=== PATIENT | female | born 1975 | race Caucasian/White ===

== ENCOUNTER → 2016-05-02 | Outpatient (CLI) | payer OTHER ==
[2015-12-18 01:07] VITALS: BP 97/54
[~2016-05-02] MED LIST: AMLO10TA2 PO; CLON0.1T12 PO; CONTRAST GIVEN MC PRN; DEXL60CA PO; DIVA500T2 PO; DIVA500T4 PO; IOHEXOL 240 MG/ML 50ML VIAL. IV ONE; IOHEXOL 300 MG/ML 75 ML VIAL IV ONE; LISI-338 PO; LORA0.5T PO; LOVA10TA PO; MECL12.52 PO; PANT20TA2 PO; PROAIR HFA8.5 GM IH; PROP80CA3 PO; ROPI0.5T PO; SERT50TA PO; TIZA4TAB PO; ZOLM5TAB PO
--- NOTE | 2016-05-02 13:04 | RAD ---
Indication: Abdominal pain. Technique: Axial images and coronal and sagittal reformatted images are provided. Patient received oral contrast and 75 mL of intravenous Omnipaque 300 without complication. No comparison is available. One or more of the following individualized dose reduction techniques were utilized for this examination: 1. Automated exposure control 2. Adjustment of the mA and/or kV according to patient size 3. Use of iterative reconstruction technique Findings: The lung bases are clear. There is no pleural effusion. The heart is not enlarged. There is fatty infiltration of the liver. Gallbladder is surgically absent. Spleen is not enlarged. The pancreas and the adrenals are unremarkable. The kidneys are symmetrically perfused. Aorta is normal caliber. There is no small bowel obstruction or mural thickening. Colon is grossly unremarkable. Normal appendix is noted. Small fat-containing umbilical hernia is noted. Small widemouthed fat containing right paramidline ventral hernia is noted in the upper abdomen. There is no free pelvic fluid. Bladder is unremarkable. There is no adnexal mass. Bony structures are intact. Impression: 1. No acute abdominal findings. 2. Fatty infiltration of the liver.
== END | disposition home or self-care (01) ==
LOC: CT 08:57
PROVIDERS: ATTEND Nurse Practitioner Family
DX: R10.9 Unspecified abdominal pain (principal); K76.0 Fatty (change of) liver, not elsewhere classified
CPT/HCPCS: 74177; Q9966; Q9967

== ENCOUNTER → 2016-07-21 | Outpatient (CLI) | payer OTHER ==
[2015-12-18 01:07] VITALS: BP 97/54
[~2016-07-21] MED LIST changes: -CONTRAST GIVEN MC PRN; -IOHEXOL 240 MG/ML 50ML VIAL. IV ONE; -IOHEXOL 300 MG/ML 75 ML VIAL IV ONE
--- NOTE | 2016-07-22 08:59 | RAD ---
EXAM: DIGITAL SCREEN BILAT W/CAD HISTORY: Screening. COMPARISON: 05/15/2014 and 05/29/2015. This study was interpreted with the benefit of Computerized Aided Detection (CAD). The breast parenchyma is primarily fatty replaced. Breast parenchyma level density A. FINDINGS: No dominant suspicious mass, suspicious microcalcifications, or architectural distortion is identified. IMPRESSION: No evidence of malignancy. BI-RADS CATEGORY: 1 NEGATIVE RECOMMENDED FOLLOW-UP: 12M 12 MONTH FOLLOW-UP PQRS compliance statement: Patient information was entered into a reminder system with a target due date for the next mammogram. Mammography is a sensitive method for finding small breast cancers, but it does not detect them all and is not a substitute for careful clinical examination. A negative mammogram does not negate a clinically suspicious finding and should not result in delay in biopsying a clinically suspicious abnormality. "Our facility is accredited by the [employer] Mammography Program."
== END | disposition home or self-care (01) ==
LOC: MAMMO 13:08
PROVIDERS: ATTEND Family Medicine
DX: Z12.31 Encounter for screening mammogram for malignant neoplasm of breast (principal)
CPT/HCPCS: G0202; 77067

== ENCOUNTER 2016-11-24 14:38 | Emergency (ER) | payer OTHER ==
[~2016-11-24] VITALS: Ht 152.4 cm; Wt 111.6 kg
[~2016-11-24 14:38] MED LIST changes: -DEXL60CA PO; +DEXL60CA2 PO
--- NOTE | 2016-11-24 14:57 | PHYS DOC ---
Past Medical History Past Medical History: Anxiety, Bipolar, GERD, TIA Past Surgical History: Cholecystectomy, Tonsillectomy, Other Additional Past Surgical Histo: adenoidectomy Alcohol Use: Occasionally Drug Use: None Adult General Chief Complaint Chief Complaint: HEADACHE HPI HPI Patient is a 41 year old female presenting to the emergency department for evaluation of a headache that has been going on since yesterday that she says is the same as prior migraine headaches. He has nausea and vomiting with it and cannot hold down her medications including her migraine medications as she takes a triptan. Patient says that she has been constipated since starting a new medication several days ago. She denies any fevers chills diarrhea dysuria hematuria vision changes unilateral weakness numbness or tingling. Review of Systems Review of Systems Constitutional: Denies fever or chills [] Eyes: Denies change in visual acuity, redness, or eye pain [] HENT: Denies nasal congestion or sore throat [] Respiratory: Denies cough or shortness of breath [] Cardiovascular: No additional information not addressed in HPI [] GI: Denies abdominal pain, nausea, vomiting, bloody stools or diarrhea [] : Denies dysuria or hematuria [] Musculoskeletal: Denies back pain or joint pain [] Integument: Denies rash or skin lesions [] Neurologic: + headache. No focal weakness or sensory changes [] Current Medications Current Medications Current Medications Medications (Trade) Dose Ordered Sig/Agustin Start Time Stop Time Status Last Admin Dose Admin Diphenhydramine HCl (Benadryl) 50 mg 1X ONCE 11/24/16 15:15 11/24/16 15:16 DC 11/24/16 15:24 50 MG Fentanyl Citrate (Fentanyl 2ml Vial) 50 mcg 1X ONCE 11/24/16 15:15 11/24/16 15:16 DC 11/24/16 15:23 50 MCG Ketorolac Tromethamine (Toradol) 30 mg 1X ONCE 11/24/16 15:15 11/24/16 15:16 DC 11/24/16 15:24 30 MG Metoclopramide HCl (Reglan) 10 mg 1X ONCE 11/24/16 15:15 11/24/16 15:16 DC 11/24/16 15:24 10 MG Sodium Chloride 1,000 ml @ 1,000 mls/hr 1X ONCE 11/24/16 15:15 11/24/16 16:14 DC 11/24/16 15:25 1,000 MLS/HR Allergies Allergies Allergies Coded Allergies Type Severity Reaction Last Updated Verified Penicillins Allergy Severe Anaphylaxis 01/02/15 Yes prochlorperazine Allergy Severe tongue swelling 06/30/13 Yes prochlorperazine edisylate Allergy Severe Anaphylaxis 01/02/14 Yes prochlorperazine maleate Allergy Severe Anaphylaxis 01/02/14 Yes Physical Exam Physical Exam Constitutional: Well developed, well nourished, no acute distress, non-toxic appearance. [] HENT: Normocephalic, atraumatic, bilateral external ears normal, oropharynx moist, no oral exudates, nose normal. [] Eyes: PERRLA, EOMI, conjunctiva normal, no discharge. [] Neck: Normal range of motion, no tenderness, supple, no stridor. [] Cardiovascular:Heart rate regular rhythm, no murmur [] Lungs & Thorax: Bilateral breath sounds clear to auscultation [] Abdomen: Bowel sounds normal, soft, no tenderness, no masses, no pulsatile masses. [] Skin: Warm, dry, no erythema, no rash. [] Back: No tenderness, no CVA tenderness. [] Extremities: No tenderness, no cyanosis, no clubbing, ROM intact, no edema. [] Neurologic: Alert and oriented X 3, normal motor function, normal sensory function, no focal deficits noted. [] Current Patient Data Vital Signs Vital Signs Date Time Temp Pulse Resp B/P (MAP) Pulse Ox O2 Delivery O2 Flow Rate FiO2 11/24/16 15:57 95 Room Air 11/24/16 15:57 67 14 11/24/16 14:54 98.0 150/74 (99) 98.0 Lab Values Laboratory Tests Test 11/24/16 14:58 11/24/16 15:10 POC Urine HCG, Qualitative Hcg negative (Negative) White Blood Count 9.0 x10^3/uL (4.0-11.0) Red Blood Count 5.16 x10^6/uL (3.50-5.40) Hemoglobin 15.6 g/dL (12.0-15.5) H Hematocrit 46.3 % (36.0-47.0) Mean Corpuscular Volume 90 fL (79-100) Mean Corpuscular Hemoglobin 30 pg (25-35) Mean Corpuscular Hemoglobin Concent 34 g/dL (31-37) Red Cell Distribution Width 13.7 % (11.5-14.5) Platelet Count 211 x10^3/uL (140-400) Neutrophils (%) (Auto) 74 % (31-73) H Lymphocytes (%) (Auto) 18 % (24-48) L Monocytes (%) (Auto) 6 % (0-9) Eosinophils (%) (Auto) 2 % (0-3) Basophils (%) (Auto) 1 % (0-3) Neutrophils # (Auto) 6.7 x10^3uL (1.8-7.7) Lymphocytes # (Auto) 1.6 x10^3/uL (1.0-4.8) Monocytes # (Auto) 0.5 x10^3/uL (0.0-1.1) Eosinophils # (Auto) 0.2 x10^3/uL (0.0-0.7) Basophils # (Auto) 0.0 x10^3/uL (0.0-0.2) Magnesium Level 1.8 mg/dL (1.8-2.4) Creatine Kinase 62 U/L (26-192) Lipase 105 U/L (73-393) Laboratory Tests 11/24/16 15:10 EKG EKG [] Radiology/Procedures Radiology/Procedures [] Course & Med Decision Making Course & Med Decision Making Patient with migraine headache that was treated with Toradol Benadryl and Reglan and now her headache and nausea is resolved but she is complaining mostly of constipation at this point and she sat down on the stool and was unable to go. Patient has repeat normal neurologic exam and is stable for discharge so we will give her a glycerin suppository and magnesium citrate and have her drink at home have her follow with her primary care provider in the next 2-3 days and come back to the ED sooner with worsening pain fevers vomiting or other general concerns. Patient aware and agreeable with plan for discharge and verbalized understanding of the above instructions. Dragon Disclaimer Dragon Disclaimer This electronic medical record was generated, in whole or in part, using a voice recognition dictation system. Departure Departure Impression: Primary Impression: Headache Additional Impression: Constipation Disposition: HOME, SELF-CARE Condition: STABLE Referrals: WALKER BABCOCK MD (PCP) Patient Instructions: Constipation, Adult Scripts Ondansetron (ZOFRAN ODT) 4 Mg Tab.rapdis 4 MG PO BID Y for NAUSEA/VOMITING, #10 TAB Prov: CRISTINA LANDERS DO 11/24/16 Problem Qualifiers Primary Impression: Headache Headache type: unspecified Headache chronicity pattern: unspecified pattern Intractability: not intractable Qualified Codes: R51 - Headache CRISTINA LANDERS DO Nov 24, 2016 14:57
[2016-11-24] MEDS ORDERED: diphenhydrAMINE 50 MG/ML VIAL IVP ONE (15:15)
[2016-11-24] MEDS ORDERED: IV NORMAL SALINE 1000ML BAG 1,000 ML IV ONE (15:15)
[2016-11-24] MEDS ORDERED: KETOROLAC 30 MG/ML INJ. IV ONE (15:15)
[2016-11-24] MEDS ORDERED: fentaNYL PF VIAL 100 MCG/2 ML VIAL IV ONE (15:15)
[2016-11-24] MEDS ORDERED: METOCLOPRAMIDE HCL 10 MG/2 ML VIAL. IV ONE (15:15)
[2016-11-24 15:26] LABS: BASO % 1 % (0-3); EOS % 2 % (0-3); HEMATOCRIT 46.3 % (36.0-47.0); HEMOGLOBIN 15.6 g/dL (12.0-15.5); LYMPH # 1.6 x10^3/uL (1.0-4.8); LYMPH % 18 % (24-48); MEAN CORPUSCULAR HEMOGLOBIN 30 pg (25-35); MEAN CORPUSCULAR HGB CONC 34 g/dL (31-37); MEAN CORPUSCULAR VOLUME 90 fL (79-100); MONO % 6 % (0-9); NEUT % 74 % (31-73); PLATELET COUNT 211 x10^3/uL (140-400); RED BLOOD COUNT 5.16 x10^6/uL (3.50-5.40); RED CELL DISTRIBUTION WIDTH 13.7 % (11.5-14.5)
[2016-11-24 15:35] LABS: MAGNESIUM 1.8 mg/dL (1.8-2.4)
[2016-11-24 16:34] VITALS: BP 148/67
[2016-11-24] MEDS ORDERED: ONDA4TAB10 PO (16:42)
[2016-11-24] MEDS ORDERED: GLYCERIN ADULT 1 SUPP.RECT. PR ONE (16:45)
[2016-11-24] MEDS ORDERED: MAGNESIUM CITRATE 296 ML SOLUTION. PO ONE (16:45)
== END 2016-11-24 16:50 | disposition home or self-care (01) ==
LOC: ER 14:38
DX: R51 Headache (principal); R11.2 Nausea with vomiting, unspecified; K21.9 Gastro-esophageal reflux disease without esophagitis; Z86.73 Personal history of transient ischemic attack (TIA), and cerebral infarction without residual deficits; Z88.0 Allergy status to penicillin; Z88.8 Allergy status to other drugs, medicaments and biological substances
CPT/HCPCS: 36415; 81025; 82550; 83690; 83735; 85025; 96361; 96374; 96375; 99284; J1200; J1885; J2765; J3010; J7030

== ENCOUNTER 2017-01-18 03:05 | Emergency (ER) | payer OTHER ==
[~2017-01-18] VITALS: Ht 152.4 cm; Wt 104.3 kg
[~2017-01-18 03:05] MED LIST changes: +ONDA4TAB10 PO
[2017-01-18] MEDS ORDERED: diphenhydrAMINE 50 MG/ML VIAL IVP ONE (04:15)
[2017-01-18] MEDS ORDERED: fentaNYL PF VIAL 100 MCG/2 ML VIAL IV ONE (04:15)
[2017-01-18] MEDS ORDERED: METOCLOPRAMIDE HCL 10 MG/2 ML VIAL. IV ONE (04:15)
[2017-01-18] MEDS ORDERED: IV NORMAL SALINE 1000ML BAG 1,000 ML IV ONE (04:15)
[2017-01-18] MEDS ORDERED: KETOROLAC 30 MG/ML INJ. IV ONE (04:30)
[2017-01-18 04:37] VITALS: BP 128/64
[2017-01-18] MEDS ORDERED: DEXAMETHASONE SOD PHOS 20 MG/5 ML VIAL. IV ONE (05:15)
--- NOTE | 2017-01-18 05:27 | PHYS DOC ---
Past Medical History Past Medical History: Anxiety, Bipolar, GERD, TIA Past Surgical History: Cholecystectomy, Tonsillectomy, Other Additional Past Surgical Histo: adenoidectomy Alcohol Use: Occasionally Drug Use: None Adult General Chief Complaint Chief Complaint: HEADACHE HPI HPI Patient is a 42 year old with history of bipolar, hypertension, PCO S, CVA and recurrent migraines who presents with typical migraine headache. Headache is located in his usual location. The room the right temporal lobe. Is associated with light and sound sensitivity. Headache is rated moderate to severe started approximately 2 days ago. Patient took nausea medication sumatriptan with limited relief. Denies neck pain, stiffness, fever or rash, extremity weakness. Sensation. Also reports loose stools for the past 3 days. No other symptoms or complaints.[] Review of Systems Review of Systems Review symptoms as per history of present illness. All other review symptoms are negative. [] All other systems were reviewed and found to be within normal limits, except as documented in this note. Current Medications Current Medications Current Medications Medications (Trade) Dose Ordered Sig/Agustin Start Time Stop Time Status Last Admin Dose Admin Dexamethasone Sodium Phosphate (Decadron) 10 mg 1X ONCE 01/18/17 05:15 01/18/17 05:16 DC 01/18/17 05:03 10 MG Diphenhydramine HCl (Benadryl) 50 mg 1X ONCE 01/18/17 04:15 01/18/17 04:16 DC 01/18/17 04:11 50 MG Fentanyl Citrate (Fentanyl 2ml Vial) 75 mcg 1X ONCE 01/18/17 04:15 01/18/17 04:16 DC 01/18/17 04:10 75 MCG Ketorolac Tromethamine (Toradol) 30 mg 1X ONCE 01/18/17 04:30 01/18/17 04:31 DC 01/18/17 04:18 30 MG Metoclopramide HCl (Reglan Vial) 10 mg 1X ONCE 01/18/17 04:15 01/18/17 04:16 DC 01/18/17 04:08 10 MG Sodium Chloride 1,000 ml @ 1,000 mls/hr 1X ONCE 01/18/17 04:15 01/18/17 05:14 DC 01/18/17 04:12 1,000 MLS/HR Allergies Allergies Allergies Coded Allergies Type Severity Reaction Last Updated Verified Penicillins Allergy Severe Anaphylaxis 01/02/15 Yes prochlorperazine Allergy Severe tongue swelling 06/30/13 Yes prochlorperazine edisylate Allergy Severe Anaphylaxis 01/02/14 Yes prochlorperazine maleate Allergy Severe Anaphylaxis 01/02/14 Yes Physical Exam Physical Exam Constitutional: Well developed, well nourished, moderate discomfort secondary to pain.. [] HENT: Normocephalic, atraumatic, bilateral external ears normal, oropharynx moist, no oral exudates, nose normal. [] Eyes: PERRLA, EOMI, light sensitive.[] Neck: Normal range of motion, no tenderness, supple, no stridor. [] Cardiovascular:Heart rate regular rhythm, no murmur [] Lungs & Thorax: Bilateral breath sounds clear to auscultation. [] Extremities: No tenderness, no cyanosis, no clubbing, ROM intact, no edema. [] Neurologic: Alert and oriented X 3, cranial nerves II through XII grossly intact , normal motor function, normal sensory function, no focal deficits noted. [] Psychologic: Affect normal, judgement normal, mood normal. [] Current Patient Data Vital Signs Vital Signs Date Time Temp Pulse Resp B/P (MAP) Pulse Ox O2 Delivery O2 Flow Rate FiO2 01/18/17 04:10 16 96 Room Air 01/18/17 03:12 97.4 72 176/101 (126) 97.4 Lab Values Laboratory Tests Test 01/18/17 03:43 POC Urine HCG, Qualitative Hcg negative (Negative) EKG EKG [] Radiology/Procedures Radiology/Procedures [] Course & Med Decision Making Course & Med Decision Making Pertinent Labs and Imaging studies reviewed. (See chart for details) [Acute recurrent migraine headache. No neurologic deficits on exam. Symptoms significantly improved with treatment. Will defer further evaluation to patient' s physician. Return precautions reviewed..] Dragon Disclaimer Dragon Disclaimer This electronic medical record was generated, in whole or in part, using a voice recognition dictation system. Departure Departure Impression: Primary Impression: Migraine headache Disposition: HOME, SELF-CARE Condition: GOOD Patient Instructions: Migraine Headache, [id number] Additional Instructions: Please go home and rest. Drink clear liquids and take medications as prescribed if migraine persists. Follow up with your PCP or neurologist for re-evaluation. GLORIA REGALADO DO Jan 18, 2017 05:26
== END 2017-01-18 05:41 | disposition home or self-care (01) ==
LOC: ER 03:05
DX: G43.909 Migraine, unspecified, not intractable, without status migrainosus (principal); F41.9 Anxiety disorder, unspecified; F31.9 Bipolar disorder, unspecified; K21.9 Gastro-esophageal reflux disease without esophagitis; I10 Essential (primary) hypertension; Z86.73 Personal history of transient ischemic attack (TIA), and cerebral infarction without residual deficits; Z88.0 Allergy status to penicillin; Z90.49 Acquired absence of other specified parts of digestive tract; Z88.8 Allergy status to other drugs, medicaments and biological substances
CPT/HCPCS: 81025; 96361; 96374; 96375; 99284; J1100; J1200; J1885; J2765; J3010; J7030

== ENCOUNTER → 2018-02-21 | Outpatient (CLI) | payer OTHER ==
[~2018-02-21] MED LIST changes: +ALBU2.5V8 IH; -AMLO10TA2 PO; +AMLO10TA6 PO; -PROAIR HFA8.5 GM IH
--- NOTE | 2018-02-21 16:14 | KCIC ---
EXAM: Thyroid sonogram. HISTORY: Dysphagia. TECHNIQUE: Sonographic imaging of the thyroid was performed. COMPARISON: None. FINDINGS: The right thyroid lobe measures 5.7 x 1.9 x 2.2 cm. The left thyroid lobe measures 5.5 x 1.5 x 1.9 cm. The thyroid isthmus measures 4.6 mm. There is a suspected complicated cyst or mixed solid and cystic lesion within the inferior right thyroid lobe measuring 6 x 4 x 4 mm. There is a similar suspected complicated cyst or mixed solid and cystic lesion within the inferior left thyroid lobe measuring 4 x 3 x 2 mm. The thyroid parenchyma is diffusely heterogeneous. IMPRESSION: 1. Tiny benign-appearing hypoechoic lesions within both thyroid lobes measuring 6 mm on the right and 4 mm of the left. 2. Mildly heterogeneous thyroid parenchyma. This can be seen as a sequela of thyroiditis. The thyroid is prominent in size Electronically signed by: Poornima Parham MD (02/21/2018 4:10 PM) [id number]
== END | disposition home or self-care (01) ==
LOC: KCIC US 15:42
PROVIDERS: ATTEND Family Medicine
DX: R13.10 Dysphagia, unspecified (principal)
CPT/HCPCS: 76536

== ENCOUNTER → 2019-10-30 | Outpatient (CLI) | payer OTHER ==
[2018-07-17 09:38] VITALS: BP 134/85
[~2019-10-30] MED LIST changes: -AMLO10TA6 PO; +AMLO10TA8 PO; -MECL12.52 PO; +MECL12.573 PO; +ONDA4TAB12 PO; -TIZA4TAB PO; +TIZA4TAB2 PO; -ZOLM5TAB PO; +ZOLM5TAB34 PO
--- NOTE | 2019-10-30 14:47 | RAD ---
EXAM: Pelvic sonogram. HISTORY: Pain. TECHNIQUE: Transabdominal and transvaginal sonographic imaging of the pelvis was performed. COMPARISON: None. FINDINGS: The exam is limited due to bowel gas and body habitus. The uterus is normal in size. The endometrial stripe measures 9 mm thickness. The ovaries are normal in size and demonstrate normal blood flow. No pelvic free fluid is seen. IMPRESSION: 1. Thickened endometrial stripe for the reported postmenopausal status of patient, measuring 9 mm. 2. Unremarkable ovaries. 3. Limited exam due to bowel gas and body habitus. Electronically signed by: Poornima Parham MD (10/30/2019 2:44 PM) [facility]
== END | disposition home or self-care (01) ==
LOC: US 11:46
PROVIDERS: ATTEND Nurse Practitioner Family
DX: R93.89 Abnormal findings on diagnostic imaging of other specified body structures (principal); R10.2 Pelvic and perineal pain
CPT/HCPCS: 76830; 76856